=== PATIENT | female | born 1955 | race Caucasian/White ===

== ENCOUNTER 2017-04-23 12:58 | Emergency (ER) | payer SELFPAY, OTHER | END 2017-04-23 14:28 | disposition left against medical advice (07) | LOC: E/R 14:28 | DX: Z53.21 Procedure and treatment not carried out due to patient leaving prior to being seen by health care provider (principal) ==

== ENCOUNTER 2017-05-03 07:56 | Emergency (ER) | payer OTHER | END 2017-05-03 08:45 | disposition home or self-care (01) | LOC: FTE 07:56 | DX: M54.5 Low back pain (principal); I10 Essential (primary) hypertension; F17.210 Nicotine dependence, cigarettes, uncomplicated | CPT/HCPCS: 99284; Z7502 ==

== ENCOUNTER 2017-07-24 18:01 | Emergency (ER) | payer SELFPAY, OTHER | END 2017-07-24 19:11 | disposition left against medical advice (07) | LOC: FTE 18:01 | DX: Z53.21 Procedure and treatment not carried out due to patient leaving prior to being seen by health care provider (principal) ==

== ENCOUNTER 2017-08-05 12:24 | Emergency (ER) | payer OTHER ==
[2017-08-05] MEDS: IPRATROPIUM (NEB) 0.5 MG/2.5 ML AMP INH (12:44)
[2017-08-05] MEDS: ALBUTEROL 0.5% (NEB) 2.5 MG/0.5 ML AMP INH (12:45)
[2017-08-05] MEDS: LORAZEPAM 2 MG INJ IV (13:11)
[2017-08-05] MEDS: METHYLPREDNISOLONE 125 MG INJ IV (13:11)
[2017-08-05 13:25] LABS: ADD MAN DIFF? NO
[2017-08-05 13:28] LABS: WHITE BLOOD COUNT 13.5 10^3/ul (4.8-10.8)
[2017-08-05 13:28] LABS: BASOPHIL # 0.1 10^3/ul (0.0-0.1); BASOPHILS % 0.8 % (0.0-2.0); EOSINOPHILS # 0.2 10^3/ul (0.0-0.5); EOSINOPHILS % 1.2 % (0.0-7.0); HEMATOCRIT 42.7 % (37.0-47.0); HEMOGLOBIN 14.6 g/dl (12.0-16.0); LYMPHOCYTES # 3.3 10^3/ul (0.8-2.9); LYMPHOCYTES % 24.3 % (15.0-51.0); MEAN CORPUSCULAR HEMOGLOBIN 31.1 pg (29.0-33.0); MEAN CORPUSCULAR HGB CONC 34.2 g/dl (32.0-37.0); MONOCYTE # 0.8 10^3/ul (0.3-0.9); NEUTROPHIL # 9.1 10^3/ul (1.6-7.5); NEUTROPHILS % 67.1 % (39.0-77.0); PLATELET COUNT 322 10^3/UL (140-415); RED BLOOD COUNT 4.69 10^6/ul (4.20-5.40); RED CELL DISTRIBUTION WIDTH 13.1 % (11.5-14.5)
[2017-08-05 13:44] LABS: ANION GAP 23 (8-16); BLOOD UREA NITROGEN 31 mg/dl (7-20); CALCIUM 9.8 mg/dl (8.4-10.2); CARBON DIOXIDE 22 mmol/L (21-31); CHLORIDE 106 mmol/L (97-110); CREATININE 0.86 mg/dl (0.44-1.00); GLUCOSE 107 mg/dl (70-220); POTASSIUM 4.9 mmol/L (3.5-5.1); SODIUM 146 mmol/L (135-144)
[2017-08-05 13:48] LABS: INR 0.87; PARTIAL THROMBOPLASTIN TIME 30.6 Sec (25.0-35.0); PROTIME 11.9 Sec (11.9-14.9); PT RATIO 0.9
[2017-08-05 14:02] LABS: TROPONIN-I < 0.012 ng/ml (0.00-0.12)
== END 2017-08-05 16:58 | disposition home or self-care (01) ==
LOC: E/R 12:24
DX: F41.9 Anxiety disorder, unspecified (principal); R06.82 Tachypnea, not elsewhere classified; E86.0 Dehydration; D72.829 Elevated white blood cell count, unspecified; I10 Essential (primary) hypertension; J44.9 Chronic obstructive pulmonary disease, unspecified; R40.2142 Coma scale, eyes open, spontaneous, at arrival to emergency department; R40.2252 Coma scale, best verbal response, oriented, at arrival to emergency department; R40.2362 Coma scale, best motor response, obeys commands, at arrival to emergency department; Z87.891 Personal history of nicotine dependence; Z79.84 Long term (current) use of oral hypoglycemic drugs
CPT/HCPCS: 71045; 80048; 84484; 85025; 85610; 85730; 93005; 94644; 96374; 96375; 99285-25

== ENCOUNTER 2017-09-06 15:15 | Emergency (ER) | payer OTHER ==
[2017-09-06] MEDS: AZITHROMYCIN 250 MG TAB PO (17:08)
[2017-09-06] MEDS: predniSONE 20 MG TAB PO (17:08)
== END 2017-09-06 17:12 | disposition home or self-care (01) ==
LOC: E/R 15:15
DX: J44.1 Chronic obstructive pulmonary disease with (acute) exacerbation (principal); I10 Essential (primary) hypertension; Z87.891 Personal history of nicotine dependence
CPT/HCPCS: 99284; J7512

== ENCOUNTER 2017-09-18 10:29 | Emergency (ER) | payer OTHER ==
[2017-09-18] MEDS: IPRATROPIUM (NEB) 0.5 MG/2.5 ML AMP INH (11:58)
[2017-09-18] MEDS: ALBUTEROL 0.5% (NEB) 2.5 MG/0.5 ML AMP INH (11:58)
[2017-09-18 12:00] LABS: ADD MAN DIFF? NO
[2017-09-18 12:01] LABS: BASOPHIL # 0.1 10^3/ul (0.0-0.1); BASOPHILS % 0.7 % (0.0-2.0); EOSINOPHILS # 0.2 10^3/ul (0.0-0.5); EOSINOPHILS % 1.5 % (0.0-7.0); HEMATOCRIT 51.5 % (37.0-47.0); LYMPHOCYTES # 3.1 10^3/ul (0.8-2.9); LYMPHOCYTES % 21.1 % (15.0-51.0); MEAN CORPUSCULAR HEMOGLOBIN 30.8 pg (29.0-33.0); MEAN CORPUSCULAR VOLUME 93.3 fl (82.0-101.0); MEAN PLATELET VOLUME 9.2 fl (7.4-10.4); NEUTROPHIL # 10.3 10^3/ul (1.6-7.5); NEUTROPHILS % 69.1 % (39.0-77.0); PLATELET COUNT 379 10^3/UL (140-415); RED BLOOD COUNT 5.52 10^6/ul (4.20-5.40); RED CELL DISTRIBUTION WIDTH 12.8 % (11.5-14.5)
[2017-09-18 12:01] LABS: WHITE BLOOD COUNT 14.9 10^3/ul (4.8-10.8)
[2017-09-18] MEDS: DEXAMETHASONE 10 MG/ML 1 ML INJ IV (12:15)
[2017-09-18] MEDS: SOD CHLORIDE 0.9% 1,000 ML IV (12:28)
[2017-09-18 12:32] LABS: BLOOD UREA NITROGEN 25 mg/dl (7-20); CALCIUM 10.2 mg/dl (8.4-10.2); CARBON DIOXIDE 28 mmol/L (21-31); CHLORIDE 105 mmol/L (97-110); CREATININE 0.81 mg/dl (0.44-1.00); GLUCOSE 100 mg/dl (70-220); SODIUM 146 mmol/L (135-144)
[2017-09-18 12:35] LABS: ANION GAP 17 (8-16)
[2017-09-18 12:41] LABS: B-TYPE NATRIURETIC PEPTIDE 462 PG/ML (0-125)
[2017-09-18 12:47] LABS: TROPONIN-I < 0.012 ng/ml (0.000-0.120)
== END 2017-09-18 14:15 | disposition home or self-care (01) ==
LOC: E/R 10:29
DX: J44.1 Chronic obstructive pulmonary disease with (acute) exacerbation (principal); I10 Essential (primary) hypertension; Z79.84 Long term (current) use of oral hypoglycemic drugs; Z87.891 Personal history of nicotine dependence
CPT/HCPCS: 36415; 71045; 80048; 83880; 84484; 85025; 93005; 94644; 96374; 99285-25

== ENCOUNTER 2017-11-29 22:48 | Emergency (ER) | payer OTHER ==
[2017-11-29 23:30] LABS: URINE BLOOD (Dip) POC Negative (NEGATIVE); URINE GLUCOSE (Dip) POC Negative (NEGATIVE); URINE KETONES (Dip) POC Trace (NEGATIVE); URINE LEUKOCYTE EST (Dip) POC 1+ (NEGATIVE); URINE NITRITE (Dip) POC Negative (NEGATIVE); URINE TOTAL PROTEIN POC Trace (NEGATIVE)
[2017-11-29 23:30] LABS: URINE PH (Dip) POC 5.5 (5.0-8.5)
[2017-11-29] MEDS: KETOROLAC 30 MG INJ IM (23:36)
== END 2017-11-29 23:55 | disposition home or self-care (01) ==
LOC: E/R 22:48
DX: M54.41 Lumbago with sciatica, right side (principal); N39.0 Urinary tract infection, site not specified; I10 Essential (primary) hypertension; J44.9 Chronic obstructive pulmonary disease, unspecified; E11.9 Type 2 diabetes mellitus without complications; F17.210 Nicotine dependence, cigarettes, uncomplicated; Z79.84 Long term (current) use of oral hypoglycemic drugs
CPT/HCPCS: 81003; 96372; 99284-25

== ENCOUNTER 2017-12-16 16:37 | Emergency (ER) | payer OTHER ==
[2017-12-16] MEDS: TRIMETHOPRIM/SULFAMETHOX (DS) TAB PO (17:30)
== END 2017-12-16 17:44 | disposition home or self-care (01) ==
LOC: FTE 16:37
DX: L03.113 Cellulitis of right upper limb (principal); J44.9 Chronic obstructive pulmonary disease, unspecified; I10 Essential (primary) hypertension; F17.210 Nicotine dependence, cigarettes, uncomplicated
CPT/HCPCS: 99283; Z7502